=== PATIENT | female | born 1970 | race Caucasian/White ===

== ENCOUNTER 2023-06-29 11:29 | Emergency (ER) | payer SELFPAY ==
[~2023-06-29] VITALS: Ht 157.5 cm; Wt 61.2 kg
[2023-06-29 11:30] VITALS: BP_SYST 144; PULSE 94; RESP 18; TEMP 98.2; O2SAT 98
[2023-06-29 11:35] VITALS: BP_SYST 144; PULSE 94; RESP 18; TEMP 98.2; O2SAT 98
[2023-06-29] MEDS ORDERED: clonazePAM 0.5 MG TABLET PO ONE (11:45)
[2023-06-29 12:09] LABS: BASOPHILS % (AUTO) 0.4 % (0.0-2.0); EOSINOPHILS % (AUTO) 0.2 % (0.0-4.0); HEMATOCRIT 38.2 % (36-48); HEMOGLOBIN 12.8 g/dL (12.0-16.0); LYMPHOCYTES # (AUTO) 1.5 K/uL (1.0-5.5); LYMPHOCYTES % (AUTO) 17.4 % (20.5-51.5); MEAN CORPUSCULAR HEMOGLOBIN 31 pg (27-31); MEAN CORPUSCULAR HGB CONC 33 % (32-36); MEAN CORPUSCULAR VOLUME 93 fL (79.0-98.0); MONOCYTES # (AUTO) 0.5 K/uL (0.0-1.0); MONOCYTES % (AUTO) 5.7 % (1.7-9.3); NEUTROPHILS # (AUTO) 6.6 K/uL (1.8-7.7); NEUTROPHILS % (AUTO) 76.3 % (40.0-70.0); PLATELET COUNT (AUTO) 216 K/uL (130-430); RED BLOOD CELL COUNT(AUTO) 4.11 MIL/uL (4.2-6.2); RED CELL DISTRIBUTION WIDTH 13.4 % (9.0-15.0); WHITE BLOOD COUNT (AUTO) 8.7 K/uL (4.8-10.8)
[2023-06-29 12:33] LABS: CALCIUM 9.5 mg/dL (8.4-11.0); CREATININE 0.57 mg/dL (0.55-1.30); POTASSIUM 3.7 mmol/L (3.5-5.1)
== END 2023-06-29 14:04 | disposition home or self-care (01) ==
LOC: SED 11:29
DX: R56.9 Unspecified convulsions (principal); Z88.0 Allergy status to penicillin
CPT/HCPCS: 36415; 70450-TC; 76376; 80048; 80156; 83605; 85025; 99284